=== PATIENT | male | born 1950 | race Caucasian/White ===

== ENCOUNTER 2020-10-30 04:30 | Outpatient (CLI) | payer MEDICARE, SELFPAY ==
[2020-10-30 08:44] LABS: Abs Immature Grans 0.02 10^3/uL (0.0-0.06); Absolute Basophil Count 0.03 10^3/uL (0.0-0.2); Absolute Eosinophil Count 0.09 10^3/uL (0.0-0.7); Absolute Lymphocyte Count 1.09 10^3/uL (1.2-3.4); Absolute Monocyte Count 0.99 10^3/uL (0.1-0.8); Basophils % 0.3; HCT 41.3 % (40.0-50.0); HGB 13.4 g/dL (13.5-17.5); Immature Grans % 0.2; Lymphocytes % 12.2; MCH 29.6 pg (27.0-33.0); MCHC 32.4 % (32.0-36.0); MCV 91.4 fL (80-95); MPV 8.7 fL (8.0-11.0); Monocytes % 11.1; Neutrophils % 75.2; Nucleated RBC 0 %; Platelet Count 305 10^3/uL (130-400); RBC 4.52 10^6/uL (4.36-5.78); RDW 13.1 % (11.8-14.1); RDW-SD 43.9 fL; WBC 8.92 10^3/uL (4.4-10.8)
[2020-10-30 09:14] LABS: ALT 56 U/L (16-63); AST 28 U/L (15-37); Albumin 2.7 g/dL (3.4-5.0); Alkaline Phosphatase 111 U/L (46-116); Anion Gap 5.7 mmol/L (3-11); BUN 11 mg/dL (7-18); Bilirubin, Total 0.3 mg/dL (0.2-1.0); CO2 30.3 mmol/L (21.0-32.0); CREATININE 0.9 mg/dL (0.70-1.30); Calcium 9.3 mg/dL (8.5-10.1); Chloride 102 mmol/L (98-107); FREE T4 1.27 ng/dL (0.76-1.46); Glucose 108 mg/dL (74-106); Magnesium 2.1 mg/dL (1.8-2.4); Potassium 3.7 mmol/L (3.5-5.1); Sodium 138 mmol/L (136-145); TSH 2.71 uIU/mL (0.36-3.74); Total Protein 7.7 g/dL (6.4-8.2)
== END 2020-10-30 04:31 | disposition home or self-care (01) ==
LOC: LBO 04:30
PROVIDERS: Internal Medicine Medical Oncology; Visit Provider Internal Medicine
DX: C45.7 Mesothelioma of other sites (principal); Z79.899 Other long term (current) drug therapy
CPT/HCPCS: 36415; 80053; 83735; 84439; 84443; 85025

== ENCOUNTER 2020-11-20 03:38 | Outpatient (CLI) | payer MEDICARE, SELFPAY ==
[2020-11-20 09:11] LABS: Abs Immature Grans 0.03 10^3/uL (0.0-0.06); Absolute Basophil Count 0.03 10^3/uL (0.0-0.2); Absolute Lymphocyte Count 1.04 10^3/uL (1.2-3.4); Absolute Monocyte Count 0.68 10^3/uL (0.1-0.8); Absolute Neutrophil Count 5.24 10^3/uL (1.2-6.7); Basophils % 0.4; Eosinophils % 5.4; HCT 38.3 % (40.0-50.0); HGB 12.2 g/dL (13.5-17.5); Immature Grans % 0.4; MCH 29.2 pg (27.0-33.0); MCHC 31.9 % (32.0-36.0); MCV 91.6 fL (80-95); MPV 8.1 fL (8.0-11.0); Monocytes % 9.2; Neutrophils % 70.6; Nucleated RBC 0 %; Platelet Count 296 10^3/uL (130-400); RBC 4.18 10^6/uL (4.36-5.78); RDW 13.9 % (11.8-14.1); RDW-SD 46.9 fL; WBC 7.42 10^3/uL (4.4-10.8)
[2020-11-20 09:33] LABS: ALT 104 U/L (16-63); AST 42 U/L (15-37); Albumin 2.4 g/dL (3.4-5.0); Alkaline Phosphatase 100 U/L (46-116); Anion Gap 6.9 mmol/L (3-11); BUN 12 mg/dL (7-18); Bilirubin, Total 0.3 mg/dL (0.2-1.0); CO2 32.1 mmol/L (21.0-32.0); CREATININE 0.9 mg/dL (0.70-1.30); Calcium 9.3 mg/dL (8.5-10.1); Chloride 100 mmol/L (98-107); Glucose 131 mg/dL (74-106); Magnesium 2.1 mg/dL (1.8-2.4); Potassium 3.9 mmol/L (3.5-5.1); Sodium 139 mmol/L (136-145); Total Protein 7.2 g/dL (6.4-8.2)
== END 2020-11-20 03:39 | disposition home or self-care (01) ==
PROVIDERS: Visit Provider Internal Medicine Medical Oncology
DX: C45.7 Mesothelioma of other sites (principal); Z79.899 Other long term (current) drug therapy
CPT/HCPCS: 36415; 80053; 83735; 84439; 84443; 85025

== ENCOUNTER 2020-12-11 04:15 | Outpatient (CLI) | payer MEDICARE, SELFPAY ==
[2020-12-11 07:19] LABS: Abs Immature Grans 0.03 10^3/uL (0.0-0.06); Absolute Basophil Count 0.05 10^3/uL (0.0-0.2); Absolute Eosinophil Count 1.32 10^3/uL (0.0-0.7); Absolute Lymphocyte Count 1.55 10^3/uL (1.2-3.4); Absolute Monocyte Count 0.72 10^3/uL (0.1-0.8); Absolute Neutrophil Count 4.33 10^3/uL (1.2-6.7); Basophils % 0.6; Eosinophils % 16.5; HCT 40.6 % (40.0-50.0); Immature Grans % 0.4; Lymphocytes % 19.4; MCH 29.1 pg (27.0-33.0); MPV 8.8 fL (8.0-11.0); Neutrophils % 54.1; Nucleated RBC 0 %; Platelet Count 188 10^3/uL (130-400); RBC 4.46 10^6/uL (4.36-5.78); RDW 14.8 % (11.8-14.1); RDW-SD 49.4 fL
[2020-12-11 07:40] LABS: ALT 25 U/L (16-63); AST 16 U/L (15-37); Albumin 2.9 g/dL (3.4-5.0); Alkaline Phosphatase 127 U/L (46-116); Anion Gap 7.3 mmol/L (3-11); BUN 16 mg/dL (7-18); Bilirubin, Total 0.4 mg/dL (0.2-1.0); CO2 28.7 mmol/L (21.0-32.0); CREATININE 0.9 mg/dL (0.70-1.30); Calcium 8.8 mg/dL (8.5-10.1); Chloride 106 mmol/L (98-107); FREE T4 0.95 ng/dL (0.76-1.46); Glucose 81 mg/dL (74-106); Magnesium 1.9 mg/dL (1.8-2.4); Potassium 3.8 mmol/L (3.5-5.1); Sodium 142 mmol/L (136-145); TSH 2.46 uIU/mL (0.36-3.74); Total Protein 7.1 g/dL (6.4-8.2)
== END 2020-12-11 04:16 | disposition home or self-care (01) ==
LOC: LBO 04:15
PROVIDERS: PCP Nurse Practitioner Acute Care; Visit Provider Internal Medicine Medical Oncology
DX: C45.7 Mesothelioma of other sites (principal); Z79.899 Other long term (current) drug therapy
CPT/HCPCS: 36415; 80053; 83735; 84439; 84443; 85025

== ENCOUNTER 2020-12-11 10:04 | Emergency (ER) | payer MEDICARE, SELFPAY ==
[2020-12-11] VITALS (29 sets, daily range): BP systolic 106–132; BP diastolic 62–78; PULSE 75–95; RESP 12–30; TEMP 36.7; O2SAT 94–100
--- NOTE | 2020-12-11 10:00 | RT.EKG_ITS ---
APPROVED REPORT Exam: Resting ECG Patient Location: E HR:75 bpm ECG Measurements Heart Rate 75 AXIS WI 142 P 63 QRSd 81 QRS 14 QT 388 T 37 QTc 433 Conclusion Sinus rhythm...normal P axis, V-rate 60- 99 Low voltage, extremity and precordial leads...extremity<0.5mV, precordial<1.0mV I have reviewed and interpreted ECG and agree with software generated interpretation.
--- NOTE | 2020-12-11 10:11 | ED.GENADUL_ITS ---
Discharge Plan Disposition Patient Disposition: HOME Condition: Good Discharge Details Clinical Impression: Vasovagal near syncope Primary Care Provider: Warren Martin ED Provider: Ai Rucker Home Meds and New Rx's Prescriptions: Continued atorvastatin 80 mg tablet 80 mg PO DAILY RF: 0 acetaminophen 325 mg Tablet 650 mg PO Q4H PRN PRN (Reason: Pain) RF: 0 clopidogrel 75 mg tablet 75 mg PO DAILY RF: 0 prochlorperazine maleate 10 mg tablet 10 mg PO Q6H PRN PRN (Reason: Nausea) RF: 0 aspirin 81 mg Tablet,Delayed Release (Dr/Ec) 81 mg PO DAILY RF: 0 nitroglycerin 0.4 mg Tablet, Sublingual See Rx Instructions .ROUTE .COMPLEX RF: 0 metoprolol succinate 25 mg tablet extended release 24 hr 25 mg PO DAILY RF: 0 Discharge Instructions Instructions: Hypotension (ED), Near Syncope (ED) Additional Instructions: It appears that likely your episode of dizziness was due to your low blood pressure possibly from standing up too quickly in combination with dehydration. Be sure to stand up slowly and stay hydrated. Call your oncologist today to discuss when he would recommend your next immunotherapy treatment. Return immediately to the emergency department if you develop any worsening or new concerning symptoms. Discharge Data Discharge Date/Time-TO BE ENTERED AT DEPARTURE: 12/11/20 14:20 Discharge Physician: Ai Rucker Medical Decision Making 70-year-old male with a history of hypertension, cholelithiasis, coronary artery disease with NSTEMI status post RODRICK to the LAD and former smoker diagnosed with mesothelioma in September 2020 on his third immunotherapy treatment at the cancer center presents for dizziness and hypotension upon standing at the cancer center today near the end of his immunotherapy treatment. EKG on arrival notes a rate of 75, sinus, no STEMI,. Blood pressure 111/65. He is afebrile and appears nontoxic. Orthostatics obtained and unremarkable. Suspect most likely orthostatic hypotension or vasovagal near syncope related to dehydration as he states he was out in the sun all weekend and did not drink much water. Also consider medication reaction, electrolyte abnormality, CVA, mass, pneumonia, or pleural effusion. Will place an IV, bolus IV fluids, screening labs, CT head and chest x-ray and reassess. Labs and imaging reviewed. White blood cell count 4.3. Hemoglobin 13.2. Troponin normal. CT head negative. Chest x-ray noted left upper lobe infiltrate with moderate size pleural effusion. CT chest was done to rule out PE which also notes diffuse left-sided pleural thickening and additional ipsilateral loculated probable sub pulmonic pleural effusion measuring approximately 8 x 7 x 3 cm. Case discussed with [facility] thoracic surgery who reviewed the CT chest images and states they actually are improved compared to their most recent imaging and have no other recommendations. Case also discussed with [facility] heme-onc who stated they did not feel that patient's episode today was related to his immunotherapy. He will pass along to Amina Keyes NP at the cancer center regarding patient's next chemotherapy treatment. They recommend that he call Dr. Morfin for recommendations regarding his next chemotherapy treatment. Usual and customary return precautions given prior to discharge. Medical Records Medical records reviewed: Yes I reviewed the patient's medical records. Imaging Data Radiologic Study: Radiologist's impression: CT HEAD WO CLINICAL HISTORY: dizziness, h/o mesothelioma, r/o cva, mets, mass. TECHNIQUE: Imaging Protocol: Axial computed tomography images with coronal and sagittal reformatted images were created and reviewed COMPARISON: No exams were available for comparison FINDINGS: There are no skull fractures nor fluid in the visualized paranasal sinuses. There is no evidence of intracranial hemorrhage, mass effect, or shift of mi dline structures. There are no extra-axial fluid collections. The ventricles are not enlarged or shifted and there is no blood within the ventricular system nor within the basal cisterns. IMPRESSION: No acute intracranial findings on this noninfused CT scan of the brain. XR CHEST 2V PA LATERAL CLINICAL HISTORY: dizziness, h/o mesothelioma JUANJO, r/o acute dz. TECHNIQUE: 2D digital imaging was performed. COMPARISON: No exams were available for comparison FINDINGS: Heart size is normal. The mediastinum is not widened. Right lung is clear. However, there is a moderate-sized left pleural effusion. There is also an area of subtle pleural based infiltrate in the left upper lobe region measuring approximately 7 x 6 cm. IMPRESSION: Left upper lobe infiltrate/mass and ipsilateral moderate-sized left pleural effusion. Suspicion for neoplasm.No findings in the opposite-right hemithorax. CT CHEST PE CTA CLINICAL HISTORY: dizziness, h/o pleural effusion, r/o PE/pneumonia. TECHNIQUE: Imaging Protocol: CT angiography of the chest was performed using pulmonary embolus protocol. Multi planar reconstructions were performed. CONTRAST MATERIAL: Intravenous: Omnipaque 350 Contrast volume: 80 cc COMPARISON: Chest x-ray earlier today was reviewed FINDINGS: CHEST: PULMONARY ARTERIES: There are no intraluminal filling defects to suggest acute pulmonary emboli. LUNGS: There is decreased left hemithoracic volume which is possibly related to prior left-sided surgery/lobectomy.. There is diffuse thickening and nodularity of the pleural surfaces in left hemithorax both laterally and medially and including within the major fissure, the latter accounting for the subtle density seen in the left upper lobe region on the chest x-ray earlier today. In addition, there is and ipsilateral loculated subpulmonic pleural effusion which measures approximately 8 cm x 7 cm by 3 cm (craniocaudal). There is volume loss in lower lobe segments just above this. The opposite-right lung is relatively clear and there is no pleural fluid on the right side. MEDIASTINUM: Small bilateral hilar lymph nodes noted. No gross lymphadenopathy evident. CARDIAC: Heart size upper normal. Slight thickening of the pericardium is noted consistent with small pericardial effusion. This is contiguous with the pleural thickening.Caliber of the thoracic aorta is within normal limits. There is no significant shift of the interventricular septum. PARTIALLY VISUALIZED UPPERMOST ABDOMEN: There is an enhancing 8 millimeter lesion in the mid aspect spleen noted. Questionable significance. OSSEOUS: No lytic osseous lesions identified.. IMPRESSION: 1. No evidence of acute pulmonary emboli. No evidence of pulmonary infarction. 2. Diffuse left-sided pleural thickening and additional ipsilateral loculated probable sub pulmonic pleural effusion measuring approximately 8 x 7 x 3 cm. There is volume loss in the overlying basal segments of the left lower lobe. 3. The opposite-right lung is clear and there is no pleural effusion on the right side. 4. Small pericardial effusion. Findings discussed by myself with the ER provider following completion of the study. Lab Data Lab results reviewed: Yes I reviewed the patient's lab results. Labs: Laboratory Tests Range/Units 12/11/20 12/11/20 12/11/20 10:20 10:20 10:20 WBC (4.4-10.8) 10^3/uL 4.32 L D RBC (4.36-5.78) 10^6/uL 4.58 Hgb (13.5-17.5) g/dL 13.2 L Hct (40.0-50.0) % 42.1 MCV (80-95) fL 91.9 MCH (27.0-33.0) pg 28.8 MCHC (32.0-36.0) % 31.4 L RDW (11.8-14.1) % 14.9 H Plt Count (130-400) 10^3/uL 184 MPV (8.0-11.0) fL 9.0 Immature Gran % 1.9 Neutrophils % 55.5 Lymphocytes % 28.2 Monocytes % 1.2 Eosinophils % 13.0 Basophils % 0.2 Nucleated RBC % % 0 Absolute Neutrophils (1.2-6.7) 10^3/uL 2.40 Absolute Lymphocytes (1.2-3.4) 10^3/uL 1.22 Absolute Monocytes (0.1-0.8) 10^3/uL 0.05 L Absolute Eosinophils (0.0-0.7) 10^3/uL 0.56 Absolute Basophils (0.0-0.2) 10^3/uL 0.01 PT (9.3-11.0) sec 9.9 INR (0.9-1.1) 1.0 APTT (21.0-27.5) sec 22.0 Sodium (136-145) mmol/L 141 Potassium (3.5-5.1) mmol/L 3.8 Chloride (98-107) mmol/L 105 Carbon Dioxide (21.0-32.0) mmol/L 30.5 Anion Gap (3-11) mmol/L 5.5 BUN (7-18) mg/dL 17 Creatinine (0.70-1.30) mg/dL 0.9 Estimated GFR/1.73 m2 (mL/min/1.73m2) >= 60.00 Glucose (74-106) mg/dL 96 Calcium (8.5-10.1) mg/dL 8.4 L Magnesium (1.8-2.4) mg/dL 1.9 Total Bilirubin (0.2-1.0) mg/dL 0.3 AST (15-37) U/L 17 ALT (16-63) U/L 28 Alkaline Phosphatase (46-116) U/L 122 H Troponin I (<0.06) ng/mL < 0.05 Total Protein (6.4-8.2) g/dL 6.8 Albumin (3.4-5.0) g/dL 2.8 L ECG Data Attestation: I personally reviewed and interpreted this ECG (s) as follows: Interpretation: Rate of 75, sinus, no acute ST elevation or depression. AR 142. QRS 81. QTc 433. HPI General Mode of arrival: ambulatory . Date/Time Provider Initiated Documentation: 12/11/20 10:08 . Limitations to Documentation: no limitations . Information obtained by: patient . HPI Narrative: Pt is a 70yo M who a h/o HTN, cholelithiasis, coronary artery disease, NSTEMI status post RODRICK in [place] in October 2019 on aspirin and Plavix, pleural effusion determined later to the mesothelioma currently under treatment with immunotherapy at the [facility] through Dr. Rico from [facility] presents from the [facility] for hypotension and dizziness toward the end of his immunotherapy treatment today. Patient states he has been feeling fine recently and felt good this morning. Patient states toward the end of his immunotherapy treatment today at the [facility] center he stood up to go to the bathroom to urinate and felt lightheadedness upon standing. The nursing staff took his blood pressure and it was initially systolic in the 60s. He states he sat down for approximately 90 seconds and states the symptoms completely resolved shortly after that. Repeat blood pressure noted a systolic over 100. Patient denies any acute complaints at this time. Patient states he was out in the sun all weekend with the warmer weather and states he was very active and busy and may not have drank as much water as usual. He denies any recent fever, headache, blurry vision, chest pain, shortness of breath, abdominal pain, nausea, vomiting, diarrhea or urinary symptoms. He denies any new medications. Related Data Home Medications Medication Instructions Recorded Confirmed acetaminophen 650 mg PO Q4H PRN PRN 12/11/20 12/11/20 aspirin 81 mg PO DAILY 12/11/20 12/11/20 atorvastatin 80 mg PO DAILY 12/11/20 12/11/20 clopidogrel 75 mg PO DAILY 12/11/20 12/11/20 metoprolol succinate 25 mg PO DAILY 12/11/20 12/11/20 nitroglycerin See Rx Instructions .ROUTE .COMPLEX 12/11/20 12/11/20 prochlorperazine maleate 10 mg PO Q6H PRN PRN 12/11/20 12/11/20 Allergies Allergy/AdvReac Type Severity Reaction Status Date / Time No Known Allergies Allergy Unverified 12/11/20 10:19 Review of Systems All systems reviewed & are unremarkable except as noted in HPI and below Constitutional Constitutional: Reports as per HPI, Denies chills and Denies fever(s) Eyes Eyes: Denies blurry vision ENT Ears, Nose, Mouth, and Throat: Reports dizziness, Denies sore throat and Denies throat swelling Cardiovascular Cardiovascular: Denies chest pain and Denies dyspnea Respiratory Respiratory: Denies cough and Denies dyspnea Gastrointestinal Gastrointestinal: Denies abdominal pain, Denies diarrhea and Denies vomiting Genitourinary Genitourinary: Denies hematuria and Denies dysuria Musculoskeletal Musculoskeletal: Denies back pain and Denies numbness Integumentary/Breasts Skin/Breast: Denies lesions and Denies rash Neurologic Neurologic: Reports dizziness, Denies localized weakness and Denies numbness Allergic/Immunologic Allergic/Immunologic: Denies throat swelling PFSH Medical History Cholelithiasis Coronary artery disease History of pleural effusion Left side, due to mesothelioma HTN (hypertension) Hx of hyperlipidemia 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 NSTEMI (non-ST elevated myocardial infarction) October 2019 Smoker Surgical History (Updated 12/11/20 @ 11:00 by Ai Rucker DO) History of coronary artery stent placement October 2019 Social History (Updated 12/11/20 @ 11:02 by Ai Rucker DO) Smoking/Tobacco Use Status: Former Tobacco Use tobacco type: cigarettes Quit Date: 11/03/19 Pack-years: 25 Tobacco: How many years used: 25 Smoking risk assessment performed?: Yes Alcohol Intake: never Drug use: Never Do you feel safe at home: Yes Do you feel safe in your relationship?: Yes Exam Const General: cooperative and no acute distress HENMT Head: normal to inspection Face and sinus: normal facial exam Eyes General: appearance normal, both eyes and all related structures EOM: EOM intact bilaterally Neck Neck: normal visual inspection and No submandibular swelling Lymphatic: no lymphadenopathy noted Chest Chest: normal inspection of the chest and no tenderness Resp Effort & Inspection: normal respiratory effort and able to speak in complete sentences Auscultation: clear to auscultation bilaterally Cardio Rate: regular rate Rhythm: regular rhythm GI Inspection: normal to inspection Palpation: soft, not firm, not rigid and nontender Auscultation: normal bowel sounds Skin General skin exam: no rashes or lesions noted Neuro General: patient alert, patient awake and patient oriented x3 Cognition: normal cognition Speech: speech normal Motor: muscle tone normal throughout Sensory Exam: no sensory deficits noted Extrem General: normal to inspection, full ROM, capillary refill normal, no calf tenderness bilaterally and no edema Psych Appearance: grossly normal Mental Status: mental status grossly normal Speech and Movement: speech and movement normal Affect: normal affect
--- NOTE | 2020-12-11 10:30 | DI.CT_ITS ---
EXAM: CT HEAD WO CLINICAL HISTORY: dizziness, h/o mesothelioma, r/o cva, mets, mass. TECHNIQUE: Imaging Protocol: Axial computed tomography images with coronal and sagittal reformatted images were created and reviewed COMPARISON: No exams were available for comparison FINDINGS: There are no skull fractures nor fluid in the visualized paranasal sinuses. There is no evidence of intracranial hemorrhage, mass effect, or shift of midline structures. There are no extra-axial fluid collections. The ventricles are not enlarged or shifted and there is no blo od within the ventricular system nor within the basal cisterns. IMPRESSION: No acute intracranial findings on this noninfused CT scan of the brain. RADIATION DOSE DELIVERED: 797.85mGy.cm Total DLP DATA REPOSITORY: All CT scans at this facility are submitted to the National Radiology Data Registry (NRDR) Dose Index Registry (DIR) with the [employer] ([employer]). RADIATION OPTIMIZATION: All CT scans at this facility use at least one of these dose optimization te chniques: automated exposure control; mA and/or kV adjustment per patient size (includes targeted exa ms where dose is matched to clinical indication); or iterative reconstruction.
[2020-12-11 10:32] LABS: Abs Immature Grans 0.08 10^3/uL (0.0-0.06); Absolute Basophil Count 0.01 10^3/uL (0.0-0.2); Absolute Eosinophil Count 0.56 10^3/uL (0.0-0.7); Absolute Lymphocyte Count 1.22 10^3/uL (1.2-3.4); Absolute Monocyte Count 0.05 10^3/uL (0.1-0.8); Basophils % 0.2; HCT 42.1 % (40.0-50.0); HGB 13.2 g/dL (13.5-17.5); Immature Grans % 1.9; Lymphocytes % 28.2; MCH 28.8 pg (27.0-33.0); MCHC 31.4 % (32.0-36.0); MCV 91.9 fL (80-95); Monocytes % 1.2; Neutrophils % 55.5; Nucleated RBC 0 %; Platelet Count 184 10^3/uL (130-400); RBC 4.58 10^6/uL (4.36-5.78); RDW 14.9 % (11.8-14.1); RDW-SD 49.7 fL; WBC 4.32 10^3/uL (4.4-10.8)
[2020-12-11] MEDS: Normal Saline 1,000 ML 1000 ML IV (10:46)
[2020-12-11 10:49] LABS: ALT 28 U/L (16-63); AST 17 U/L (15-37); Albumin 2.8 g/dL (3.4-5.0); Alkaline Phosphatase 122 U/L (46-116); Anion Gap 5.5 mmol/L (3-11); BUN 17 mg/dL (7-18); Bilirubin, Total 0.3 mg/dL (0.2-1.0); CO2 30.5 mmol/L (21.0-32.0); CREATININE 0.9 mg/dL (0.70-1.30); Calcium 8.4 mg/dL (8.5-10.1); Chloride 105 mmol/L (98-107); Glucose 96 mg/dL (74-106); Magnesium 1.9 mg/dL (1.8-2.4); Potassium 3.8 mmol/L (3.5-5.1); Prothrombin Time 9.9 sec (9.3-11.0); Sodium 141 mmol/L (136-145); Total Protein 6.8 g/dL (6.4-8.2); Troponin I < 0.05 ng/mL (<0.06)
--- NOTE | 2020-12-11 11:15 | DI.RAD_ITS ---
EXAM: XR CHEST 2V PA LATERAL CLINICAL HISTORY: dizziness, h/o mesothelioma JUANJO, r/o acute dz. TECHNIQUE: 2D digital imaging was performed. COMPARISON: No exams were available for comparison FINDINGS: Heart size is normal. The mediastinum is not widened. Right lung is clear. However, there is a moderate-sized left pleural effusion. There is also an are a of subtle pleural based infiltrate in the left upper lobe region measuring approximately 7 x 6 cm. IMPRESSION: Left upper lobe infiltrate/mass and ipsilateral moderate-sized left pleural effusion. Suspicion for neoplasm.No findings in the opposite-right hemithorax. DATA REPOSITORY: RADIATION DOSE DELIVERED:
--- NOTE | 2020-12-11 11:30 | DI.CT_ITS ---
EXAM: CT CHEST PE CTA CLINICAL HISTORY: dizziness, h/o pleural effusion, r/o PE/pneumonia. TECHNIQUE: Imaging Protocol: CT angiography of the chest was performed using pulmonary embolus meka col. Multi planar reconstructions were performed. CONTRAST MATERIAL: Intravenous: Omnipaque 350 Contrast volume: 80 cc COMPARISON: Chest x-ray earlier today was reviewed FINDINGS: CHEST: PULMONARY ARTERIES: There are no intraluminal filling defects to suggest acute pulmonary emboli. LUNGS: There is decreased left hemithoracic volume which is possibly related to prior left-sided surg rikki/lobectomy.. There is diffuse thickening and nodularity of the pleural surfaces in left hemithora x both laterally and medially and including within the major fissure, the latter accounting for the s ubtle density seen in the left upper lobe region on the chest x-ray earlier today. In addition, ther e is and ipsilateral loculated subpulmonic pleural effusion which measures approximately 8 cm x 7 cm by 3 cm (craniocaudal). There is volume loss in lower lobe segments just above this. The opposite-right lung is relatively clear and there is no pleural fluid on the right side. MEDIASTINUM: Small bilateral hilar lymph nodes noted. No gross lymphadenopathy evident. CARDIAC: Heart size upper normal. Slight thickening of the pericardium is noted consistent with smal l pericardial effusion. This is contiguous with the pleural thickening.Caliber of the thoracic aorta is within normal limits. There is no significant shift of the interventricular septum. PARTIALLY VISUALIZED UPPERMOST ABDOMEN: There is an enhancing 8 millimeter lesion in the mid aspect s pleen noted. Questionable significance. OSSEOUS: No lytic osseous lesions identified.. IMPRESSION: 1. No evidence of acute pulmonary emboli. No evidence of pulmonary infarction. 2. Diffuse left-sided pleural thickening and additional ipsilateral loculated probable sub pulmonic p leural effusion measuring approximately 8 x 7 x 3 cm. There is volume loss in the overlying basal se gments of the left lower lobe. 3. The opposite-right lung is clear and there is no pleural effusion on the right side. 4. Small pericardial effusion. Findings discussed by myself with the ER provider following completion of the study. RADIATION DOSE DELIVERED: 323.13mGy.cm Total DLP DATA REPOSITORY: All CT scans at this facility are submitted to the National Radiology Data Registry (NRDR) Dose Index Registry (DIR) with the [employer] ([employer]). RADIATION OPTIMIZATION: All CT scans at this facility use at least one of these dose optimization te chniques: automated exposure control; mA and/or kV adjustment per patient size (includes targeted exa ms where dose is matched to clinical indication); or iterative reconstruction.
[2020-12-11] MEDS: Omnipaque 350 MG/ML 100 ML BTL IJ (11:57)
[2020-12-11] MEDS: Normal Saline - Diluent 50 ML VIAL IV (11:58)
== END 2020-12-11 14:20 | disposition home or self-care (01) ==
PROVIDERS: Emergency Provider Physician Assistant; PCP Nurse Practitioner Acute Care
DX: R55 Syncope and collapse (principal); I95.9 Hypotension, unspecified
CPT/HCPCS: 36415; 71275; 80053; 93005; 96360; 99285; 70450; 71046; 83735; 84439; 84443; 84484; 85025; 85610; 85730; 93010; 99284; J3490

== ENCOUNTER 2021-01-01 02:32 | Outpatient (CLI) | payer MEDICARE, SELFPAY ==
[2021-01-01 08:33] LABS: Abs Immature Grans 0.03 10^3/uL (0.0-0.06); Absolute Basophil Count 0.01 10^3/uL (0.0-0.2); Absolute Eosinophil Count 0.57 10^3/uL (0.0-0.7); Absolute Lymphocyte Count 1.58 10^3/uL (1.2-3.4); Absolute Monocyte Count 0.65 10^3/uL (0.1-0.8); Absolute Neutrophil Count 3.58 10^3/uL (1.2-6.7); Basophils % 0.2; Eosinophils % 8.9; HCT 39.9 % (40.0-50.0); HGB 13.4 g/dL (13.5-17.5); Immature Grans % 0.5; Lymphocytes % 24.6; MCH 30.4 pg (27.0-33.0); MCHC 33.6 % (32.0-36.0); MCV 90.5 fL (80-95); MPV 8.8 fL (8.0-11.0); Monocytes % 10.1; Neutrophils % 55.7; Nucleated RBC 0 %; Platelet Count 158 10^3/uL (130-400); RBC 4.41 10^6/uL (4.36-5.78); RDW 15.6 % (11.8-14.1); WBC 6.42 10^3/uL (4.4-10.8)
[2021-01-01 08:54] LABS: ALT 63 U/L (16-63); AST 30 U/L (15-37); Albumin 3.3 g/dL (3.4-5.0); Alkaline Phosphatase 155 U/L (46-116); Anion Gap 3.3 mmol/L (3-11); BUN 16 mg/dL (7-18); Bilirubin, Total 0.6 mg/dL (0.2-1.0); CO2 32.7 mmol/L (21.0-32.0); CREATININE 1.1 mg/dL (0.70-1.30); Calcium 9.1 mg/dL (8.5-10.1); Chloride 108 mmol/L (98-107); FREE T4 0.94 ng/dL (0.76-1.46); Glucose 81 mg/dL (74-106); Magnesium 1.9 mg/dL (1.8-2.4); Potassium 4.6 mmol/L (3.5-5.1); Sodium 144 mmol/L (136-145); TSH 4.64 uIU/mL (0.36-3.74); Total Protein 6.8 g/dL (6.4-8.2)
== END 2021-01-01 02:33 | disposition home or self-care (01) ==
PROVIDERS: PCP Nurse Practitioner Acute Care; Visit Provider Internal Medicine Medical Oncology
DX: C45.7 Mesothelioma of other sites (principal); Z79.899 Other long term (current) drug therapy
CPT/HCPCS: 36415; 80053; 83735; 84439; 84443; 85025

== ENCOUNTER 2021-01-22 10:30 | Outpatient (CLI) | payer MEDICARE, SELFPAY ==
[2021-01-22 10:54] LABS: Abs Immature Grans 0.02 10^3/uL (0.0-0.06); Absolute Basophil Count 0.02 10^3/uL (0.0-0.2); Absolute Eosinophil Count 0.28 10^3/uL (0.0-0.7); Absolute Lymphocyte Count 1.88 10^3/uL (1.2-3.4); Absolute Neutrophil Count 3.56 10^3/uL (1.2-6.7); Basophils % 0.3; Eosinophils % 4.3; HCT 40.7 % (40.0-50.0); HGB 13.7 g/dL (13.5-17.5); Immature Grans % 0.3; Lymphocytes % 28.7; MCH 30.9 pg (27.0-33.0); MCHC 33.7 % (32.0-36.0); MCV 91.7 fL (80-95); MPV 9.4 fL (8.0-11.0); Monocytes % 12.2; Neutrophils % 54.2; Nucleated RBC 0 %; Platelet Count 177 10^3/uL (130-400); RBC 4.44 10^6/uL (4.36-5.78); RDW 15.7 % (11.8-14.1); RDW-SD 53.4 fL; WBC 6.56 10^3/uL (4.4-10.8)
[2021-01-22 11:12] LABS: ALT 69 U/L (16-63); AST 29 U/L (15-37); Albumin 3.5 g/dL (3.4-5.0); Alkaline Phosphatase 135 U/L (46-116); BUN 18 mg/dL (7-18); Bilirubin, Total 0.4 mg/dL (0.2-1.0); CREATININE 0.9 mg/dL (0.70-1.30); Calcium 8.5 mg/dL (8.5-10.1); Chloride 110 mmol/L (98-107); Glucose 86 mg/dL (74-106); Magnesium 1.9 mg/dL (1.8-2.4); Potassium 4.7 mmol/L (3.5-5.1); Sodium 143 mmol/L (136-145); TSH 5.49 uIU/mL (0.36-3.74)
== END 2021-01-22 10:31 | disposition home or self-care (01) ==
PROVIDERS: PCP Nurse Practitioner Acute Care; Visit Provider Internal Medicine Medical Oncology
DX: C45.7 Mesothelioma of other sites (principal); Z79.899 Other long term (current) drug therapy
CPT/HCPCS: 36415; 80053; 83735; 84439; 84443; 85025

== ENCOUNTER 2021-02-12 16:29 | Outpatient (CLI) | payer MEDICARE, SELFPAY ==
[2021-02-12 10:53] LABS: Abs Immature Grans 0.02 10^3/uL (0.0-0.06); Absolute Basophil Count 0.03 10^3/uL (0.0-0.2); Absolute Eosinophil Count 0.18 10^3/uL (0.0-0.7); Absolute Lymphocyte Count 1.57 10^3/uL (1.2-3.4); Absolute Monocyte Count 0.48 10^3/uL (0.1-0.8); Absolute Neutrophil Count 3.08 10^3/uL (1.2-6.7); Basophils % 0.6; Eosinophils % 3.4; HCT 41.4 % (40.0-50.0); HGB 13.8 g/dL (13.5-17.5); Immature Grans % 0.4; Lymphocytes % 29.3; MCH 31.1 pg (27.0-33.0); MCHC 33.3 % (32.0-36.0); MCV 93.2 fL (80-95); MPV 8.6 fL (8.0-11.0); Neutrophils % 57.3; Nucleated RBC 0 %; Platelet Count 153 10^3/uL (130-400); RBC 4.44 10^6/uL (4.36-5.78); RDW 14.8 % (11.8-14.1); RDW-SD 51.4 fL; WBC 5.36 10^3/uL (4.4-10.8)
[2021-02-12 11:14] LABS: ALT 47 U/L (16-63); AST 21 U/L (15-37); Albumin 3.3 g/dL (3.4-5.0); Alkaline Phosphatase 129 U/L (46-116); Anion Gap 4.8 mmol/L (3-11); BUN 19 mg/dL (7-18); Bilirubin, Total 0.5 mg/dL (0.2-1.0); CO2 29.2 mmol/L (21.0-32.0); CREATININE 0.9 mg/dL (0.70-1.30); Calcium 8.4 mg/dL (8.5-10.1); Chloride 109 mmol/L (98-107); Glucose 103 mg/dL (74-106); Potassium 4.1 mmol/L (3.5-5.1); Sodium 143 mmol/L (136-145); TSH 3.34 uIU/mL (0.36-3.74); Total Protein 6.5 g/dL (6.4-8.2)
== END 2021-02-12 16:30 | disposition home or self-care (01) ==
LOC: LBO 02-13 16:30
PROVIDERS: PCP Nurse Practitioner Acute Care; Visit Provider Internal Medicine Medical Oncology
DX: C45.7 Mesothelioma of other sites (principal); Z79.899 Other long term (current) drug therapy
CPT/HCPCS: 36415; 80053; 83735; 84439; 84443; 85025

== ENCOUNTER 2021-03-07 02:52 | Outpatient (CLI) | payer MEDICARE, SELFPAY ==
[2021-03-07 10:05] LABS: Abs Immature Grans 0.02 10^3/uL (0.0-0.06); Absolute Basophil Count 0.01 10^3/uL (0.0-0.2); Absolute Eosinophil Count 0.17 10^3/uL (0.0-0.7); Absolute Lymphocyte Count 1.67 10^3/uL (1.2-3.4); Absolute Monocyte Count 0.53 10^3/uL (0.1-0.8); Absolute Neutrophil Count 3.86 10^3/uL (1.2-6.7); Basophils % 0.2; Eosinophils % 2.7; HGB 14.7 g/dL (13.5-17.5); Immature Grans % 0.3; Lymphocytes % 26.7; MCH 31.7 pg (27.0-33.0); MCHC 34.2 % (32.0-36.0); MCV 92.7 fL (80-95); MPV 9.3 fL (8.0-11.0); Monocytes % 8.5; Neutrophils % 61.6; Nucleated RBC 0 %; Platelet Count 154 10^3/uL (130-400); RBC 4.64 10^6/uL (4.36-5.78); RDW 14.1 % (11.8-14.1); RDW-SD 47.4 fL; WBC 6.26 10^3/uL (4.4-10.8)
[2021-03-07 10:40] LABS: ALT 56 U/L (16-63); AST 21 U/L (15-37); Albumin 3.5 g/dL (3.4-5.0); Alkaline Phosphatase 140 U/L (46-116); Anion Gap 9.7 mmol/L (3-11); BUN 21 mg/dL (7-18); Bilirubin, Total 0.4 mg/dL (0.2-1.0); CO2 28.3 mmol/L (21.0-32.0); Calcium 8.9 mg/dL (8.5-10.1); Chloride 106 mmol/L (98-107); FREE T4 0.89 ng/dL (0.76-1.46); Glucose 121 mg/dL (74-106); Magnesium 1.9 mg/dL (1.8-2.4); Potassium 3.9 mmol/L (3.5-5.1); Sodium 144 mmol/L (136-145); TSH 3.42 uIU/mL (0.36-3.74); Total Protein 6.8 g/dL (6.4-8.2)
== END 2021-03-07 02:53 | disposition home or self-care (01) ==
LOC: LBO 02:53
PROVIDERS: PCP Nurse Practitioner Acute Care; Visit Provider Internal Medicine Medical Oncology
DX: C45.7 Mesothelioma of other sites (principal); Z79.899 Other long term (current) drug therapy
CPT/HCPCS: 36415; 80053; 83735; 84439; 84443; 85025

== ENCOUNTER 2021-03-26 16:06 | Outpatient (CLI) | payer MEDICARE, SELFPAY ==
[2021-03-26 08:51] LABS: Abs Immature Grans 0.01 10^3/uL (0.0-0.06); Absolute Basophil Count 0.02 10^3/uL (0.0-0.2); Absolute Eosinophil Count 0.25 10^3/uL (0.0-0.7); Absolute Lymphocyte Count 1.81 10^3/uL (1.2-3.4); Absolute Monocyte Count 0.37 10^3/uL (0.1-0.8); Absolute Neutrophil Count 3.35 10^3/uL (1.2-6.7); Basophils % 0.3; Eosinophils % 4.3; HCT 41.1 % (40.0-50.0); HGB 14.3 g/dL (13.5-17.5); Immature Grans % 0.2; Lymphocytes % 31.2; MCH 32.4 pg (27.0-33.0); MCHC 34.8 % (32.0-36.0); MPV 8.9 fL (8.0-11.0); Monocytes % 6.4; Neutrophils % 57.6; Nucleated RBC 0 %; Platelet Count 147 10^3/uL (130-400); RBC 4.42 10^6/uL (4.36-5.78); RDW-SD 44.9 fL; WBC 5.81 10^3/uL (4.4-10.8)
[2021-03-26 09:16] LABS: ALT 41 U/L (16-63); AST 20 U/L (15-37); Albumin 3.5 g/dL (3.4-5.0); Alkaline Phosphatase 133 U/L (46-116); Anion Gap 6.4 mmol/L (3-11); BUN 21 mg/dL (7-18); Bilirubin, Total 0.4 mg/dL (0.2-1.0); CO2 28.6 mmol/L (21.0-32.0); Calcium 8.7 mg/dL (8.5-10.1); Chloride 108 mmol/L (98-107); FREE T4 0.85 ng/dL (0.76-1.46); Glucose 134 mg/dL (74-106); Sodium 143 mmol/L (136-145); TSH 3.64 uIU/mL (0.36-3.74); Total Protein 6.6 g/dL (6.4-8.2)
== END 2021-03-26 16:07 | disposition home or self-care (01) ==
LOC: LBO 16:06
PROVIDERS: PCP Nurse Practitioner Acute Care; Visit Provider Internal Medicine Medical Oncology
DX: C45.7 Mesothelioma of other sites (principal); Z79.899 Other long term (current) drug therapy
CPT/HCPCS: 36415; 80053; 83735; 84439; 84443; 85025

== ENCOUNTER 2021-04-16 02:40 | Outpatient (RCR) | payer MEDICARE, SELFPAY ==
[2021-04-16] MEDS: Normal Saline Flush 10 ML SYR IVP (11:06)
[2021-04-16 11:36] LABS: Abs Immature Grans 0.02 10^3/uL (0.0-0.06); Absolute Basophil Count 0.02 10^3/uL (0.0-0.2); Absolute Eosinophil Count 0.22 10^3/uL (0.0-0.7); Absolute Lymphocyte Count 1.84 10^3/uL (1.2-3.4); Absolute Monocyte Count 0.55 10^3/uL (0.1-0.8); Basophils % 0.3; Eosinophils % 3.5; HCT 42.2 % (40.0-50.0); HGB 14.7 g/dL (13.5-17.5); Immature Grans % 0.3; Lymphocytes % 29.4; MCH 32.6 pg (27.0-33.0); MCHC 34.8 % (32.0-36.0); MCV 93.6 fL (80-95); MPV 10.3 fL (8.0-11.0); Monocytes % 8.8; Neutrophils % 57.7; Nucleated RBC 0 %; Platelet Count 159 10^3/uL (130-400); RBC 4.51 10^6/uL (4.36-5.78); RDW 12.6 % (11.8-14.1); RDW-SD 43.6 fL; WBC 6.25 10^3/uL (4.4-10.8)
[2021-04-16 12:38] LABS: ALT 50 U/L (16-63); AST 26 U/L (15-37); Albumin 3.7 g/dL (3.4-5.0); Alkaline Phosphatase 119 U/L (46-116); Anion Gap 6.1 mmol/L (3-11); BUN 23 mg/dL (7-18); Bilirubin, Total 0.6 mg/dL (0.2-1.0); CO2 25.9 mmol/L (21.0-32.0); CREATININE 1.1 mg/dL (0.70-1.30); Calcium 8.8 mg/dL (8.5-10.1); Chloride 108 mmol/L (98-107); FREE T4 0.86 ng/dL (0.76-1.46); Glucose 108 mg/dL (74-106); Potassium 4.3 mmol/L (3.5-5.1); Sodium 140 mmol/L (136-145); TSH 2.46 uIU/mL (0.36-3.74); Total Protein 6.9 g/dL (6.4-8.2)
== END 2021-05-01 23:59 | disposition home or self-care (01) ==
LOC: INF 02:40
PROVIDERS: PCP Nurse Practitioner Acute Care; Visit Provider Internal Medicine Medical Oncology
DX: C45.7 Mesothelioma of other sites (principal); Z79.899 Other long term (current) drug therapy
CPT/HCPCS: 36415; 80053; 83735; 84439; 84443; 85025

== ENCOUNTER 2021-05-09 04:11 | Outpatient (CLI) | payer MEDICARE, SELFPAY ==
[2021-05-09 10:38] LABS: Abs Immature Grans 0.02 10^3/uL (0.0-0.06); Absolute Basophil Count 0.02 10^3/uL (0.0-0.2); Absolute Lymphocyte Count 1.65 10^3/uL (1.2-3.4); Absolute Neutrophil Count 3.39 10^3/uL (1.2-6.7); Basophils % 0.4; Eosinophils % 3.5; HCT 39.9 % (40.0-50.0); HGB 13.9 g/dL (13.5-17.5); Immature Grans % 0.4; MCHC 34.8 % (32.0-36.0); MCV 94.8 fL (80-95); Neutrophils % 59.7; Nucleated RBC 0 %; Platelet Count 145 10^3/uL (130-400); RBC 4.21 10^6/uL (4.36-5.78); RDW 12.4 % (11.8-14.1); RDW-SD 43.1 fL; WBC 5.68 10^3/uL (4.4-10.8)
[2021-05-09 10:54] LABS: Magnesium 1.9 mg/dL (1.8-2.4)
[2021-05-09 11:06] LABS: ALT 37 U/L (16-63); AST 20 U/L (15-37); Albumin 3.6 g/dL (3.4-5.0); Alkaline Phosphatase 109 U/L (46-116); Anion Gap 5.8 mmol/L (3-11); BUN 15 mg/dL (7-18); Bilirubin, Total 0.6 mg/dL (0.2-1.0); CO2 29.2 mmol/L (21.0-32.0); CREATININE 1.1 mg/dL (0.70-1.30); Calcium 8.7 mg/dL (8.5-10.1); Chloride 107 mmol/L (98-107); FREE T4 0.92 ng/dL (0.76-1.46); Glucose 108 mg/dL (74-106); Potassium 4.3 mmol/L (3.5-5.1); Sodium 142 mmol/L (136-145); TSH 2.25 uIU/mL (0.36-3.74); Total Protein 6.8 g/dL (6.4-8.2)
== END 2021-05-09 04:12 | disposition home or self-care (01) ==
LOC: LBO 04:11
PROVIDERS: PCP Nurse Practitioner Acute Care; Visit Provider Internal Medicine Medical Oncology
DX: C45.7 Mesothelioma of other sites (principal); Z79.899 Other long term (current) drug therapy
CPT/HCPCS: 36415; 80053; 83735; 84439; 84443; 85025

== ENCOUNTER 2021-05-28 02:43 | Outpatient (RCR) | payer MEDICARE, SELFPAY ==
[2021-05-28] MEDS: Normal Saline Flush 10 ML SYR IVP (10:41)
[2021-05-28 10:59] LABS: Abs Immature Grans 0.02 10^3/uL (0.0-0.06); Absolute Basophil Count 0.01 10^3/uL (0.0-0.2); Absolute Eosinophil Count 0.22 10^3/uL (0.0-0.7); Absolute Lymphocyte Count 1.67 10^3/uL (1.2-3.4); Absolute Monocyte Count 0.56 10^3/uL (0.1-0.8); Absolute Neutrophil Count 3.49 10^3/uL (1.2-6.7); Basophils % 0.2; Eosinophils % 3.7; HCT 41.5 % (40.0-50.0); HGB 14.3 g/dL (13.5-17.5); Immature Grans % 0.3; MCH 32.6 pg (27.0-33.0); MCHC 34.5 % (32.0-36.0); MCV 94.7 fL (80-95); MPV 9.6 fL (8.0-11.0); Monocytes % 9.4; Neutrophils % 58.4; Nucleated RBC 0 %; Platelet Count 166 10^3/uL (130-400); RBC 4.38 10^6/uL (4.36-5.78); RDW 12.7 % (11.8-14.1); WBC 5.97 10^3/uL (4.4-10.8)
[2021-05-28 11:16] LABS: ALT 41 U/L (16-63); AST 21 U/L (15-37); Albumin 3.6 g/dL (3.4-5.0); Alkaline Phosphatase 127 U/L (46-116); Anion Gap 5.3 mmol/L (3-11); BUN 17 mg/dL (7-18); Bilirubin, Total 0.5 mg/dL (0.2-1.0); CO2 28.7 mmol/L (21.0-32.0); Calcium 8.6 mg/dL (8.5-10.1); Chloride 107 mmol/L (98-107); FREE T4 0.94 ng/dL (0.76-1.46); Glucose 107 mg/dL (74-106); Sodium 141 mmol/L (136-145); TSH 2.81 uIU/mL (0.36-3.74); Total Protein 7.2 g/dL (6.4-8.2)
== END 2021-05-31 23:59 | disposition home or self-care (01) ==
LOC: INF 02:43
PROVIDERS: PCP Nurse Practitioner Acute Care; Visit Provider Internal Medicine Medical Oncology
DX: C45.0 Mesothelioma of pleura (principal); Z79.899 Other long term (current) drug therapy
CPT/HCPCS: 36415; 80053; 83735; 84439; 84443; 85025

== ENCOUNTER 2021-06-18 02:10 | Outpatient (RCR) | payer MEDICARE, SELFPAY ==
[2021-06-18] MEDS: Normal Saline Flush 10 ML SYR IVP (10:38)
[2021-06-18 10:51] LABS: Abs Immature Grans 0.02 10^3/uL (0.0-0.06); Absolute Basophil Count 0.02 10^3/uL (0.0-0.2); Absolute Eosinophil Count 0.19 10^3/uL (0.0-0.7); Absolute Lymphocyte Count 1.78 10^3/uL (1.2-3.4); Absolute Monocyte Count 0.43 10^3/uL (0.1-0.8); Absolute Neutrophil Count 3.74 10^3/uL (1.2-6.7); Basophils % 0.3; Eosinophils % 3.1; HCT 41.3 % (40.0-50.0); HGB 14.4 g/dL (13.5-17.5); Immature Grans % 0.3; Lymphocytes % 28.8; MCH 32.7 pg (27.0-33.0); MCHC 34.9 % (32.0-36.0); MCV 93.9 fL (80-95); MPV 9.6 fL (8.0-11.0); Neutrophils % 60.5; Nucleated RBC 0 %; Platelet Count 164 10^3/uL (130-400); RDW 12.3 % (11.8-14.1); WBC 6.18 10^3/uL (4.4-10.8)
[2021-06-18 11:15] LABS: ALT 37 U/L (16-63); AST 31 U/L (15-37); Albumin 3.5 g/dL (3.4-5.0); Alkaline Phosphatase 114 U/L (46-116); Anion Gap 8.4 mmol/L (3-11); BUN 19 mg/dL (7-18); Bilirubin, Total 0.5 mg/dL (0.2-1.0); CO2 26.6 mmol/L (21.0-32.0); Calcium 8.5 mg/dL (8.5-10.1); Chloride 107 mmol/L (98-107); FREE T4 0.82 ng/dL (0.76-1.46); Glucose 119 mg/dL (74-106); Magnesium 2.1 mg/dL (1.8-2.4); Potassium 4.6 mmol/L (3.5-5.1); Sodium 142 mmol/L (136-145); TSH 2.12 uIU/mL (0.36-3.74)
== END 2021-07-01 23:59 | disposition home or self-care (01) ==
LOC: INF 02:10
PROVIDERS: PCP Nurse Practitioner Acute Care; Visit Provider Internal Medicine Medical Oncology
DX: C45.7 Mesothelioma of other sites (principal); Z79.899 Other long term (current) drug therapy
CPT/HCPCS: 36415; 80053; 83735; 84439; 84443; 85025

== ENCOUNTER 2021-07-30 10:25 | Outpatient (RCR) | payer MEDICARE, SELFPAY ==
[2021-07-09 10:27] LABS: Abs Immature Grans 0.03 10^3/uL (0.0-0.06); Absolute Basophil Count 0.03 10^3/uL (0.0-0.2); Absolute Eosinophil Count 0.16 10^3/uL (0.0-0.7); Absolute Monocyte Count 0.42 10^3/uL (0.1-0.8); Absolute Neutrophil Count 4.77 10^3/uL (1.2-6.7); Basophils % 0.4; Eosinophils % 2.2; HGB 15.1 g/dL (13.5-17.5); Immature Grans % 0.4; MCH 32.8 pg (27.0-33.0); MCHC 34.3 % (32.0-36.0); MCV 95.7 fL (80-95); Monocytes % 5.8; Neutrophils % 66.2; Nucleated RBC 0 %; Platelet Count 167 10^3/uL (130-400); RDW 12.8 % (11.8-14.1); RDW-SD 45.1 fL; WBC 7.21 10^3/uL (4.4-10.8)
[2021-07-09 10:49] LABS: ALT 52 U/L (16-63); AST 20 U/L (15-37); Albumin 3.9 g/dL (3.4-5.0); Alkaline Phosphatase 116 U/L (46-116); BUN 18 mg/dL (7-18); Bilirubin, Total 0.5 mg/dL (0.2-1.0); CREATININE 1.1 mg/dL (0.70-1.30); Calcium 9.2 mg/dL (8.5-10.1); Chloride 106 mmol/L (98-107); FREE T4 0.68 ng/dL (0.76-1.46); Glucose 138 mg/dL (74-106); Potassium 4.4 mmol/L (3.5-5.1); Sodium 142 mmol/L (136-145); TSH 1.99 uIU/mL (0.36-3.74); Total Protein 7.4 g/dL (6.4-8.2)
[2021-07-30 10:55] LABS: Abs Immature Grans 0.06 10^3/uL (0.0-0.06); Absolute Basophil Count 0.02 10^3/uL (0.0-0.2); Absolute Lymphocyte Count 1.17 10^3/uL (1.2-3.4); Absolute Monocyte Count 0.53 10^3/uL (0.1-0.8); Absolute Neutrophil Count 6.28 10^3/uL (1.2-6.7); Basophils % 0.2; Eosinophils % 1.2; HCT 46.9 % (40.0-50.0); HGB 15.7 g/dL (13.5-17.5); Immature Grans % 0.7; Lymphocytes % 14.3; MCH 33.3 pg (27.0-33.0); MCHC 33.5 % (32.0-36.0); MCV 99.4 fL (80-95); Monocytes % 6.5; Neutrophils % 77.1; Nucleated RBC 0 %; Platelet Count 141 10^3/uL (130-400); RBC 4.72 10^6/uL (4.36-5.78); RDW 14.2 % (11.8-14.1); RDW-SD 52.3 fL; WBC 8.16 10^3/uL (4.4-10.8)
[2021-07-30 11:20] LABS: ALT 76 U/L (16-63); AST 30 U/L (15-37); Albumin 3.6 g/dL (3.4-5.0); Alkaline Phosphatase 105 U/L (46-116); Anion Gap 8.2 mmol/L (3-11); BUN 21 mg/dL (7-18); Bilirubin, Total 0.9 mg/dL (0.2-1.0); CO2 27.8 mmol/L (21.0-32.0); CREATININE 1.2 mg/dL (0.70-1.30); Calcium 8.9 mg/dL (8.5-10.1); Chloride 106 mmol/L (98-107); Estimated GFR 59.68 (mL/min/1.73m2); FREE T4 0.72 ng/dL (0.76-1.46); Glucose 133 mg/dL (74-106); Magnesium 2.2 mg/dL (1.8-2.4); Potassium 3.6 mmol/L (3.5-5.1); Sodium 142 mmol/L (136-145); TSH 1.02 uIU/mL (0.36-3.74)
== END 2021-07-31 23:59 | disposition home or self-care (01) ==
LOC: INF 10:25
PROVIDERS: PCP Nurse Practitioner Acute Care; Visit Provider Internal Medicine Medical Oncology
DX: C45.7 Mesothelioma of other sites (principal); Z79.899 Other long term (current) drug therapy
CPT/HCPCS: 36415; 80053; 83735; 84439; 84443; 85025

== ENCOUNTER 2021-08-27 08:00 | Outpatient (RCR) | payer MEDICARE, SELFPAY ==
[2021-08-20 11:09] LABS: Abs Immature Grans 0.05 10^3/uL (0.0-0.06); Absolute Basophil Count 0.02 10^3/uL (0.0-0.2); Absolute Lymphocyte Count 0.97 10^3/uL (1.2-3.4); Absolute Monocyte Count 0.57 10^3/uL (0.1-0.8); Absolute Neutrophil Count 3.39 10^3/uL (1.2-6.7); Basophils % 0.4; HCT 42.2 % (40.0-50.0); HGB 15.2 g/dL (13.5-17.5); MCH 32.8 pg (27.0-33.0); MCV 91.1 fL (80-95); MPV 9.3 fL (8.0-11.0); Monocytes % 11.2; Neutrophils % 66.4; Nucleated RBC 0 %; Platelet Count 166 10^3/uL (130-400); RBC 4.63 10^6/uL (4.36-5.78); RDW 13.5 % (11.8-14.1); RDW-SD 45.5 fL
[2021-08-20 11:28] LABS: Alkaline Phosphatase 384 U/L (46-116); BUN 11 mg/dL (7-18); Bilirubin, Total 1.7 mg/dL (0.2-1.0); CREATININE 1.2 mg/dL (0.70-1.30); Calcium 8.8 mg/dL (8.5-10.1); Chloride 92 mmol/L (98-107); Estimated GFR 59.68 (mL/min/1.73m2); FREE T4 1.78 ng/dL (0.76-1.46); Glucose 87 mg/dL (74-106); Magnesium 2.1 mg/dL (1.8-2.4); Potassium 3.3 mmol/L (3.5-5.1); Sodium 129 mmol/L (136-145); TSH 2.88 uIU/mL (0.36-3.74); Total Protein 6.9 g/dL (6.4-8.2)
[2021-08-20 11:29] LABS: AST 1238 U/L (15-37)
[2021-08-20 12:17] LABS: ALT 1392 U/L (16-63)
[2021-08-27 08:45] LABS: HCT 41.8 % (40.0-50.0); HGB 14.1 g/dL (13.5-17.5); MCH 32.7 pg (27.0-33.0); MCHC 33.7 % (32.0-36.0); MPV 8.8 fL (8.0-11.0); Nucleated RBC 0 %; Platelet Count 248 10^3/uL (130-400); RBC 4.31 10^6/uL (4.36-5.78); RDW 14.2 % (11.8-14.1); RDW-SD 50.9 fL; WBC 12.73 10^3/uL (4.4-10.8)
[2021-08-27 09:06] LABS: Absolute Eosinophil Count 0.25 10^3/uL (0.0-0.7); Absolute Lymphocyte Count 3.18 10^3/uL (1.2-3.4); Absolute Monocyte Count 0.51 10^3/uL (0.1-0.8); Absolute Neutrophil Count 7.89 10^3/uL (1.2-6.7)
[2021-08-27 09:07] LABS: Diff Comment Manual Differential; Metamyelocytes % 2; Myelocytes % 5; RBC Morphology Normal
[2021-08-27 09:08] LABS: ALT 391 U/L (16-63); AST 78 U/L (15-37); Alkaline Phosphatase 316 U/L (46-116); Anion Gap 6.3 mmol/L (3-11); BUN 18 mg/dL (7-18); Bilirubin, Total 0.5 mg/dL (0.2-1.0); CO2 27.7 mmol/L (21.0-32.0); Calcium 8.1 mg/dL (8.5-10.1); Chloride 105 mmol/L (98-107); FREE T4 1.08 ng/dL (0.76-1.46); Glucose 122 mg/dL (74-106); Potassium 3.5 mmol/L (3.5-5.1); Sodium 139 mmol/L (136-145); TSH 1.65 uIU/mL (0.36-3.74); Total Protein 6.4 g/dL (6.4-8.2)
== END 2021-08-31 23:59 | disposition home or self-care (01) ==
LOC: INF 08:00
PROVIDERS: PCP Nurse Practitioner Acute Care; Visit Provider Internal Medicine Medical Oncology
DX: C45.7 Mesothelioma of other sites (principal); Z79.899 Other long term (current) drug therapy
CPT/HCPCS: 36415; 80053; 83735; 84439; 84443; 85025

== ENCOUNTER 2021-11-19 11:00 | Outpatient (RCR) | payer MEDICARE, SELFPAY ==
[2021-11-05 12:32] LABS: Abs Immature Grans 0.04 10^3/uL (0.0-0.06); Absolute Basophil Count 0.02 10^3/uL (0.0-0.2); Absolute Eosinophil Count 0.09 10^3/uL (0.0-0.7); Absolute Lymphocyte Count 1.18 10^3/uL (1.2-3.4); Absolute Monocyte Count 0.44 10^3/uL (0.1-0.8); Absolute Neutrophil Count 5.23 10^3/uL (1.2-6.7); Basophils % 0.3; Eosinophils % 1.3; HCT 41.1 % (40.0-50.0); HGB 14.4 g/dL (13.5-17.5); Immature Grans % 0.6; Lymphocytes % 16.9; MCH 34.3 pg (27.0-33.0); MCV 97.9 fL (80-95); MPV 9.6 fL (8.0-11.0); Monocytes % 6.3; Neutrophils % 74.6; Nucleated RBC 0 %; Platelet Count 160 10^3/uL (130-400); RDW 12.7 % (11.8-14.1); RDW-SD 45.1 fL
[2021-11-05 12:57] LABS: ALT 28 U/L (16-63); AST 17 U/L (15-37); Albumin 3.4 g/dL (3.4-5.0); Alkaline Phosphatase 109 U/L (46-116); Anion Gap 7.4 mmol/L (3-11); BUN 19 mg/dL (7-18); Bilirubin, Total 0.5 mg/dL (0.2-1.0); CO2 27.6 mmol/L (21.0-32.0); CREATININE 1.1 mg/dL (0.70-1.30); Calcium 8.8 mg/dL (8.5-10.1); Chloride 109 mmol/L (98-107); Glucose 97 mg/dL (74-106); Magnesium 2.1 mg/dL (1.8-2.4); Potassium 3.9 mmol/L (3.5-5.1); Sodium 144 mmol/L (136-145); Total Protein 6.7 g/dL (6.4-8.2)
[2021-11-19 11:10] LABS: Abs Immature Grans 0.02 10^3/uL (0.0-0.06); Absolute Basophil Count 0.02 10^3/uL (0.0-0.2); Absolute Eosinophil Count 0.19 10^3/uL (0.0-0.7); Absolute Lymphocyte Count 2.02 10^3/uL (1.2-3.4); Absolute Monocyte Count 0.65 10^3/uL (0.1-0.8); Absolute Neutrophil Count 3.26 10^3/uL (1.2-6.7); Basophils % 0.3; Eosinophils % 3.1; HCT 41.1 % (40.0-50.0); HGB 14.2 g/dL (13.5-17.5); Immature Grans % 0.3; Lymphocytes % 32.8; MCH 33.5 pg (27.0-33.0); MCHC 34.5 % (32.0-36.0); MCV 96.9 fL (80-95); MPV 9.3 fL (8.0-11.0); Monocytes % 10.6; Neutrophils % 52.9; Nucleated RBC 0 %; Platelet Count 157 10^3/uL (130-400); RBC 4.24 10^6/uL (4.36-5.78); RDW 11.9 % (11.8-14.1); RDW-SD 42.5 fL; WBC 6.16 10^3/uL (4.4-10.8)
[2021-11-19 11:34] LABS: ALT 34 U/L (16-63); AST 20 U/L (15-37); Albumin 3.3 g/dL (3.4-5.0); Alkaline Phosphatase 100 U/L (46-116); BUN 15 mg/dL (7-18); Bilirubin, Total 0.7 mg/dL (0.2-1.0); CREATININE 1.2 mg/dL (0.70-1.30); Calcium 8.6 mg/dL (8.5-10.1); Chloride 107 mmol/L (98-107); Estimated GFR 59.68 (mL/min/1.73m2); FREE T4 0.96 ng/dL (0.76-1.46); Glucose 92 mg/dL (74-106); Magnesium 1.9 mg/dL (1.8-2.4); Potassium 3.5 mmol/L (3.5-5.1); Sodium 141 mmol/L (136-145); TSH 3.48 uIU/mL (0.36-3.74); Total Protein 6.6 g/dL (6.4-8.2)
== END 2021-11-29 23:59 | disposition home or self-care (01) ==
LOC: INF 11:00
PROVIDERS: PCP Nurse Practitioner Acute Care; Visit Provider Internal Medicine Medical Oncology
DX: C45.7 Mesothelioma of other sites (principal)
CPT/HCPCS: 36415; 80053; 83735; 84439; 84443; 85025

== ENCOUNTER 2021-11-26 03:33 | Outpatient (CLI) | payer MEDICARE, SELFPAY | END 2021-11-26 03:34 | disposition home or self-care (01) | LOC: LBO 03:33 | PROVIDERS: PCP Nurse Practitioner Acute Care; Visit Provider Internal Medicine Medical Oncology ==

== ENCOUNTER 2021-12-24 05:07 | Outpatient (CLI) | payer MEDICARE, SELFPAY ==
[2021-12-24 10:43] LABS: Abs Immature Grans 0.03 10^3/uL (0.0-0.06); Absolute Basophil Count 0.03 10^3/uL (0.0-0.2); Absolute Eosinophil Count 0.57 10^3/uL (0.0-0.7); Absolute Lymphocyte Count 2.03 10^3/uL (1.2-3.4); Absolute Monocyte Count 0.81 10^3/uL (0.1-0.8); Absolute Neutrophil Count 5.19 10^3/uL (1.2-6.7); Basophils % 0.3; Eosinophils % 6.6; HCT 41.1 % (40.0-50.0); HGB 13.8 g/dL (13.5-17.5); Immature Grans % 0.3; Lymphocytes % 23.4; MCH 31.9 pg (27.0-33.0); MCHC 33.6 % (32.0-36.0); MCV 94.9 fL (80-95); MPV 8.8 fL (8.0-11.0); Monocytes % 9.4; Platelet Count 176 10^3/uL (130-400); RBC 4.33 10^6/uL (4.36-5.78); RDW 12.2 % (11.8-14.1); RDW-SD 42.8 fL; WBC 8.66 10^3/uL (4.4-10.8)
[2021-12-24 11:05] LABS: ALT 30 U/L (16-63); AST 32 U/L (15-37); Albumin 2.8 g/dL (3.4-5.0); Alkaline Phosphatase 90 U/L (46-116); BUN 16 mg/dL (7-18); Bilirubin, Total 0.7 mg/dL (0.2-1.0); Calcium 8.9 mg/dL (8.5-10.1); Chloride 101 mmol/L (98-107); FREE T4 1.24 ng/dL (0.76-1.46); Glucose 90 mg/dL (74-106); Sodium 136 mmol/L (136-145); TSH 2.91 uIU/mL (0.36-3.74); Total Protein 6.3 g/dL (6.4-8.2)
== END 2021-12-24 05:08 | disposition home or self-care (01) ==
PROVIDERS: PCP Nurse Practitioner Acute Care; Visit Provider Nurse Practitioner Adult Health
DX: C45.7 Mesothelioma of other sites (principal); Z79.899 Other long term (current) drug therapy
CPT/HCPCS: 36415; 80053; 84439; 84443; 85025